=== PATIENT | female | born 1985 | race Caucasian/White ===

== ENCOUNTER 2016-06-21 21:30 | Emergency (ER) | payer BC, OTHER ==
[2016-06-21 21:41] VITALS: BP 148/82; PULSE 100; TEMP 97.7; BMI 31.6
--- NOTE | 2016-06-21 22:47 | PDOC ---
History of Present Illness - History of Present Illness Initial Comments: 06/21/16 23:19 The patient is a 31 year old female, with a significant past medical history of allergic reactions, who presents to the emergency department with hives to her right forearm, left inner thigh and behind her right ear today. She states the hives behind her right ear are painful and warm. She states she has had allergic reactions to most antibiotics shes taken in the past. She can not recall taking any new medications or using new body lotions/washes. She denies chest pain, shortness of breath, headache and dizziness. She denies fever, chills, nausea, vomit, diarrhea and constipation. She denies dysuria, frequency, urgency and hematuria. PCP - Dr. Tank Jon <Shu Carroll - Last Filed: 06/21/16 23:19> <Mateo Martinez - Last Filed: 06/22/16 01:42> - General Chief Complaint: Rash Stated Complaint: RASH Past History <Shu Carroll - Last Filed: 06/21/16 23:19> - Past Medical History Asthma: Yes GI Disorders: Yes (IBS) Other medical history: allergic reactions - Psycho/Social/Smoking Cessation Hx Suicidal Ideation: No Smoking Status: No Smoking History: Never smoked Number of Cigarettes Smoked Daily: 0 Information on smoking cessation initiated: No Hx Alcohol Use: No Drug/Substance Use Hx: No <Mateo Martinez - Last Filed: 06/22/16 01:42> - Past Medical History Allergies/Adverse Reactions: Allergies Allergy/AdvReac Type Severity Reaction Status Date / Time moxifloxacin HCl Allergy Severe syncope Verified 06/21/16 21:38 [From Avelox] nitrofurantoin Allergy Verified 06/21/16 21:38 sulfamethoxazole Allergy Verified 06/21/16 21:38 [From Bactrim] trimethoprim [From Bactrim] Allergy Verified 06/21/16 21:38 Home Medications: Ambulatory Orders Albuterol Sulfate Inhaler - [Ventolin Hfa *Inhaler*] 1 - 2 inh IH PRN PRN Ondansetron [Zofran *Odt*] 8 mg SL TID PRN #14 od.tablet 05/30/12 Amoxicillin/Potassium Clav [Augmentin 875-125 Tablet] 1 each PO BID #14 tablet 06/21/16 Diphenhydramine [Benadryl -] 50 mg PO DAILY PRN #12 capsule 06/21/16 Prednisone [Deltasone -] 40 mg PO DAILY #5 tablet 06/21/16 Review of Systems - Review of Systems Able to Perform ROS?: Yes Comments:: 06/21/16 23:19 CONSTITUTIONAL: Absent: fever, chills, diaphoresis, generalized weakness, malaise, loss of appetite HEENT: Absent: rhinorrhea, nasal congestion, throat pain, throat swelling, difficulty swallowing, mouth swelling, ear pain, eye pain, visual Changes CARDIOVASCULAR: Absent: chest pain, syncope, palpitations, irregular heart rate, lightheadedness , peripheral edema RESPIRATORY: Absent: cough, shortness of breath, dyspnea with exertion, orthopnea, wheezing, stridor, hemoptysis GASTROINTESTINAL: Absent: abdominal pain, abdominal distension, nausea, vomiting, diarrhea, constipation, melena, hematochezia GENITOURINARY: Absent: dysuria, frequency, urgency, hesitancy, hematuria, flank pain, genital pain MUSCULOSKELETAL: Absent: myalgia, arthralgia, joint swelling SKIN: (+) itching, hives to her right ear, forearm and left inner thigh. Absent: pallor HEMATOLOGIC/IMMUNOLOGIC: Absent: easy bleeding, easy bruising, lymphadenopathy, frequent infections ENDOCRINE: Absent: unexplained weight gain, unexplained weight loss, heat intolerance, cold intolerance NEUROLOGIC: Absent: headache, focal weakness or paresthesias, dizziness, unsteady gait, seizure, mental status changes, bladder or bowel incontinence PSYCHIATRIC: Absent: anxiety, depression, suicidal or homicidal ideation, hallucinations. <Shu Carroll - Last Filed: 06/21/16 23:19> *Physical Exam - Vital Signs Last Vital Signs Temp Pulse Resp BP Pulse Ox 97.7 F 100 H 14 148/82 98 06/21/16 21:39 06/21/16 21:39 06/21/16 21:39 06/21/16 21:39 06/21/16 21:39 - Physical Exam Comments: 06/21/16 23:20 GENERAL: Well developed, well nourished. Awake and alert. No acute distress. HEENT: Normocephalic, atraumatic. PERRLA, EOMI. No conjunctival pallor. Sclera are non- icteric. Moist mucous membranes. Oropharynx is clear. NECK: Supple. Full ROM. No JVD. Carotid pulses 2+ and symmetric, without bruits. No thyromegaly. No lymphadenopathy. CARDIOVASCULAR: Regular rate and rhythm. No murmurs, rubs, or gallops. Distal pulses are 2+ and symmetric. PULMONARY: No evidence of respiratory distress. Lungs clear to auscultation bilaterally. No wheezing, rales or rhonchi. ABDOMINAL: Soft. Non-tender. Non-distended. No rebound or guarding. No organomegaly. Normoactive bowel sounds. MUSCULOSKELETAL Normal range of motion at all joints. No bony deformities or tenderness. No CVA tenderness. EXTREMITIES: No cyanosis. No clubbing. No edema. No calf tenderness. SKIN: (+) posterior right ear is erythematous, warm and mildly tender to palpation. There are hives to her right forearm, left medial thigh, and bilateral feet. Warm and dry. Brisk capillary refill. No jaundice. NEUROLOGICAL: Alert, awake, appropriate. Cranial nerves 2-12 intact. Normoreflexic in the upper and lower extremities. Normal speech. Toes are down-going bilaterally. Gait is normal without ataxia. PSYCHIATRIC: Cooperative. Good eye contact. Appropriate mood and affect. 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 <Shu Carroll - Last Filed: 06/21/16 23:19> *DC/Admit/Observation/Transfer - Attestations Scribe Attestion: 06/21/16 23:23 Documentation prepared by Shu Carroll, acting as biomedical service engineer for Mateo Martinez MD, MD <Shu Carroll - Last Filed: 06/21/16 23:19> - Discharge Dispostion Admit: No <Mateo Martinez - Last Filed: 06/22/16 01:42> Diagnosis at time of Disposition: Allergic contact dermatitis, Cellulitis - Discharge Dispostion Disposition: HOME Condition at time of disposition: Stable - Prescriptions Prescriptions: Amoxicillin/Potassium Clav [Augmentin 875-125 Tablet] 1 each PO BID #14 tablet Diphenhydramine [Benadryl -] 50 mg PO DAILY PRN #12 capsule PRN Reason: For Itching Prednisone [Deltasone -] 40 mg PO DAILY #5 tablet - Referrals Referrals: Tank Jon [Primary Care Provider] - - Patient Instructions Printed Discharge Instructions: DI for Cellulitis -- Adult, DI for General Allergic Reactions
== END 2016-06-22 00:05 | disposition home or self-care (01) ==
LOC: JERFT 21:30 → JER 21:30
DX: L50.0 Allergic urticaria (principal)
CPT/HCPCS: 36415; 87491; 87591; 99281-25